=== PATIENT | male | born 1955 | race Caucasian/White ===

== ENCOUNTER 2022-08-03 00:18 | Day surgery (SDC) | payer OTHER, SELFPAY ==
[2022-07-21 09:25] VITALS: BMI 42.8
[2022-08-03 09:03] VITALS: BP 153/67; PULSE 64; RESP 18; TEMP 36.2; O2SAT 97; BMI 42.8
[2022-08-03] MEDS: LACTATED RINGERS 1,000 ML 150 ML IV CONT (09:14)
[2022-08-03 09:20] LABS: Glucose Point of Care 124 mg/dl (65-105)
--- NOTE | 2022-08-03 09:24 | WPDANESEPPF ---
Anes - Initial Pre Proc Eval Procedure: Operation Date: 08/03/22 10:30 Proposed Procedures p Screening Colonoscopy - Jin Quijano MD Date/Time: 08/03/22 09:24 Surgeon: Jin Quijano MD Pre Op Diagnosis: hx colon polyps Patient Data Age: 66 Gender: M Height: 1.68 m Weight: 120.4 kg Last Vital Signs Temp 97.1 F L 08/03/22 09:03 Pulse 64 08/03/22 09:03 Resp 18 08/03/22 09:03 BP 153/67 H 08/03/22 09:03 Pulse Ox 97 08/03/22 09:03 O2 Del Method Room Air 08/03/22 09:03 Allergies Allergy/AdvReac Type Severity Reaction Status Date / Time No Known Allergies Allergy Unknown Verified 08/03/22 09:02 Home Medications Medication Instructions Recorded Confirmed Type atorvastatin 40 mg tablet 40 mg PO DAILY 07/21/22 07/21/22 History empagliflozin 25 mg tablet 25 mg PO DAILY 07/21/22 07/21/22 History (Jardiance) glimepiride 4 mg tablet 4 mg PO BID 07/21/22 07/21/22 History insulin glargine U-300 conc 300 20 unit subcut HS 07/21/22 07/21/22 History unit/mL (1.5 mL) subcutaneous pen ([employer] SoloStar U-300 Insulin) lisinopril 20 1 tablet PO DAILY 07/21/22 07/21/22 History mg-hydrochlorothiazide 12.5 mg tablet meloxicam 15 mg tablet 15 mg PO DAILY 07/21/22 07/21/22 History metformin 1,000 mg tablet 1,000 mg PO BID 07/21/22 07/21/22 History omeprazole 20 mg capsule,delayed 20 mg PO DAILY 07/21/22 07/21/22 History release pravastatin 40 mg tablet 40 mg PO DAILY 07/21/22 07/21/22 History saxagliptin 5 mg tablet (Onglyza) 5 mg PO DAILY 07/21/22 07/21/22 History testosterone cypionate 200 mg/mL 200 mg subcut [id number] 07/21/22 07/21/22 History intramuscular oil Laboratory Tests 08/03/22 09:14 POC Capillary Glucose 124 mg/dl H mg/dl (65-105) Patient hx anesthesia problems: none Family hx anesthesia problems: none Results Review: All pre-operative results and documents have been reviewed as part of the pre-operative evaluation. [facility] Social History Social History Smoking packs per day: 2 Smoking cigarettes per day: 40.0 Years smoked: 20 Smoking pack-years: 40.00 Smoking status: Former smoker Tobacco type: cigarettes Alcohol intake: never Substance use: never Substance use type: does not use Living arrangements: with family Additional living arrangements comments: granddaughter lives with him Spiritual care concerns: No Anes - Eval Final PreProcedure Day of Procedure 08/03/22 09:24 Patient weight: morbidly obese Heart: regular rate and rhythm Lungs: clear to auscultation Airway: Mallampati scale class III Neurological: alert and oriented Last oral intake: >/= 8 hours ASA classification: III Emergent: no Anesthetic plan: proceed Anesthesia type and monitoring: general GIVS and standard monitoring Results Review: All pre-operative results and documents have been reviewed as part of the pre-operative evaluation. Informed Consent: The patient's anesthetic plan and its attendant risks and benefits were discussed with the patient/family/POA. Questions were solicited and answers provided to the satisfaction of the patient/family/POA.
--- NOTE | 2022-08-03 09:55 | PM.HPGS ---
History of Present Illness History of Present Illness Consent: Risks, benefits, and alternatives have been discussed and questions answered. Patient agrees to proceed with procedure. Chief complaint: hx colon polyps Narrative: Parviz Law Sr. is a 66 year old male referred for colon cancer screening. He has had a polyp removed in the past. Review of Systems Review of Systems: All systems reviewed & are unremarkable except as noted in HPI and below PMFSH Social History Social History Smoking packs per day: 2 Smoking cigarettes per day: 40.0 Years smoked: 20 Smoking pack-years: 40.00 Smoking status: Former smoker Tobacco type: cigarettes Alcohol intake: never Substance use: never Substance use type: does not use Living arrangements: with family Additional living arrangements comments: granddaughter lives with him Spiritual care concerns: No Meds Home Medications and Allergies Home Medications Medication Instructions Recorded Confirmed Type atorvastatin 40 mg tablet 40 mg PO DAILY 07/21/22 07/21/22 History empagliflozin 25 mg tablet 25 mg PO DAILY 07/21/22 07/21/22 History (Jardiance) glimepiride 4 mg tablet 4 mg PO BID 07/21/22 07/21/22 History insulin glargine U-300 conc 300 20 unit subcut HS 07/21/22 07/21/22 History unit/mL (1.5 mL) subcutaneous pen ([employer] SoloStar U-300 Insulin) lisinopril 20 1 tablet PO DAILY 07/21/22 07/21/22 History mg-hydrochlorothiazide 12.5 mg tablet meloxicam 15 mg tablet 15 mg PO DAILY 07/21/22 07/21/22 History metformin 1,000 mg tablet 1,000 mg PO BID 07/21/22 07/21/22 History omeprazole 20 mg capsule,delayed 20 mg PO DAILY 07/21/22 07/21/22 History release pravastatin 40 mg tablet 40 mg PO DAILY 07/21/22 07/21/22 History saxagliptin 5 mg tablet (Onglyza) 5 mg PO DAILY 07/21/22 07/21/22 History testosterone cypionate 200 mg/mL 200 mg subcut [id number] 07/21/22 07/21/22 History intramuscular oil Allergies Allergy/AdvReac Type Severity Reaction Status Date / Time No Known Allergies Allergy Unknown Verified 08/03/22 09:02 Vital Signs Vital Signs - 24 hr 08/03/22 09:03 Temperature 36.2 C L Pulse Rate 64 Respiratory Rate 18 Blood Pressure 153/67 H Pulse Oximetry 97 Oxygen Delivery Room Air Exam Resp: Auscultation: clear to auscultation bilaterally Cardio: Rate: regular rate Rhythm: regular rhythm GI: GI Palp: Yes Soft to palpation and No Tenderness to palpation present (GI) Assessment and Plan Assessment and plan (1) Colon cancer screening: Code(s): Z12.11 - Encounter for screening for malignant neoplasm of colon Status: Acute Assessment and Plan: Colonoscopy with possible biopsy or polypectomy or cautery or injection of substances.
[2022-08-03 10:25] VITALS: BP 85/41; PULSE 64; RESP 14; O2SAT 93
[2022-08-03 10:35] VITALS: BP 82/44; PULSE 63; RESP 14; O2SAT 91
[2022-08-03 10:48] VITALS: BP 87/43; PULSE 60; RESP 13; O2SAT 91
== END 2022-08-03 10:58 | disposition home or self-care (01) ==
PROVIDERS: PCP Internal Medicine; Visit Provider Internal Medicine Gastroenterology
PROC: 0DJD8ZZ Inspection of Lower Intestinal Tract, Via Natural or Artificial Opening Endoscopic (ICD-10-PCS; CPT 45378; principal; 2022-08-03 10:30)
DX: Z12.11 Encounter for screening for malignant neoplasm of colon (principal); K63.5 Polyp of colon; Z87.891 Personal history of nicotine dependence; Z79.899 Other long term (current) drug therapy
CPT/HCPCS: 45385; 82948; 88305; J2704; J7120